=== PATIENT | male | born 1950 | race Caucasian/White ===

== ENCOUNTER 2017-02-28 08:52 | Day surgery (SDC) | payer OTHER ==
[2017-02-27 13:47] VITALS: BMI 24.5
[2017-02-28 10:29] VITALS: TEMP 97.9
[2017-02-28] MEDS ORDERED: PROPOFOL 20 ML ONE ×4 (10:29)
[2017-02-28 11:19] VITALS: BP 107/80; PULSE 72
--- NOTE | 2017-03-01 12:07 | PATH ---
Surgical Pathology Report Patient Name: MICAH BISHOP [facility]. Rec. #: [id number] /Age/Gender: 1950 (Age: 66) / M Account: [id number] Location: U-ENDOSCOPY Taken: 02/28/2017 Received: 02/28/2017 Reported: 03/01/2017 Physicians: Jacoby Liriano M.D. Specimen(s) Received A: COLON POLYPS B: HEPATIC FLEXURE POLYPS C: DESCENDING COLON POLYP D: POLYP SIGMOID Clinical History History of colon adenoma (polyp) Polyps Final Diagnosis A. COLON, TRANSVERSE, POLYPS, BIOPSY AND POLYPECTOMY: MULTIPLE FRAGMENTS OF TUBULAR ADENOMAS. B. COLON, HEPATIC FLEXURE, POLYPS, POLYPECTOMY: FRAGMENTS OF HYPERPLASTIC TYPE POLYP WITH FEATURES OF SESSILE SERRATED ADENOMA. C. COLON, DESCENDING, POLYP, BIOPSY: HYPERPLASTIC POLYP WITH FOCAL ADENOMATOUS CHANGE. D. COLON, SIGMOID, POLYP, POLYPECTOMY: SERRATED ADENOMA. Electronically Signed Cuate Castro M.D. Gross Description A. Received in formalin, labeled "transverse colon polyps" are 6 gray, irregular portions of soft tissue ranging from 0.2-0.6 cm in greatest dimension. The specimens are submitted in toto in one cassette. B. Received in formalin, labeled "hepatic flexure polyp" are 2 gray, irregular portions of soft tissue averaging 0.4 cm in greatest dimension. The specimens are submitted in toto in one cassette. C. Received in formalin, labeled "biopsy descending colon polyp" is a gray, irregular portion of soft tissue measuring 0.3 cm in greatest dimension. The specimen is submitted in toto in one cassette. D. Received in formalin, labeled "sigmoid polyp" is a gray, irregular portion of soft tissue measuring 0.2 cm in greatest dimension. The specimen is submitted in toto in one cassette. DL/02/28/2017 saudi/02/28/2017
== END 2017-02-28 11:19 | disposition home or self-care (01) ==
LOC: JASU-ENDO 08:52
PROVIDERS: ATTEND Internal Medicine Gastroenterology
PROC: 0DBN8ZX Excision of Sigmoid Colon, Via Natural or Artificial Opening Endoscopic, Diagnostic (ICD-10-PCS; 2017-02-28)
PROC: 0DBK8ZX Excision of Ascending Colon, Via Natural or Artificial Opening Endoscopic, Diagnostic (ICD-10-PCS; 2017-02-28)
PROC: 0DBM8ZX Excision of Descending Colon, Via Natural or Artificial Opening Endoscopic, Diagnostic (ICD-10-PCS; 2017-02-28)
PROC: 0DBL8ZX Excision of Transverse Colon, Via Natural or Artificial Opening Endoscopic, Diagnostic (ICD-10-PCS; principal; 2017-02-28 09:30)
DX: Z86.010 Personal history of colon polyps (principal); D12.2 Benign neoplasm of ascending colon; D12.3 Benign neoplasm of transverse colon; D12.5 Benign neoplasm of sigmoid colon; K63.5 Polyp of colon; N40.0 Benign prostatic hyperplasia without lower urinary tract symptoms
CPT/HCPCS: 88305-TC